=== PATIENT | female | born 2000 | race Two or more races ===

== ENCOUNTER → 2019-06-09 | Outpatient (CLI) | payer BC ==
--- NOTE | 2019-06-09 11:37 | KCIC ---
2 View CXR. Clinical indications: Positive TB skin test. Findings: No acute lung infiltrate or pleural effusion or pulmonary edema or lung mass or cavitary nodule or pneumothorax is seen. The heart size, pulmonary vasculature, mediastinum and both andre are unremarkable. The osseous structures appear intact. Impression: No acute radiographic abnormality is seen. Specifically, there are no radiographic findings indicative of active tuberculous lung disease. Electronically signed by: Obed Omalley MD (06/09/2019 11:34 AM) [id number]
== END | disposition home or self-care (01) ==
LOC: KCIC 11:09
PROVIDERS: ATTEND Nurse Practitioner Adult Health
DX: Z11.1 Encounter for screening for respiratory tuberculosis (principal)
CPT/HCPCS: 71046